=== PATIENT | male | born 1935 | race Caucasian/White ===

== ENCOUNTER → 2018-11-23 | Outpatient (CLI) | payer MEDICARE, OTHER ==
--- NOTE | 2018-11-23 14:20 | Diagnostic Imaging Report ---
INDICATION: Peripheral vascular disease. Upper extremity arterial Doppler bilaterally revealed no focal velocity acceleration or deceleration. This phasicity of the waveforms bilaterally biphasic throughout the left and a mixed biphasic and triphasic on the right. No hemodynamically significant stenosis or segmental occlusion. IMPRESSION: Unremarkable bilateral upper extremity arterial Doppler. Dictated by: Dictated on workstation # [id number]
== END ==
LOC: RAD 11:36
PROVIDERS: ATTEND Pediatrics
DX: I73.9 Peripheral vascular disease, unspecified (principal)
CPT/HCPCS: 93930

== ENCOUNTER 2020-09-16 19:46 | Emergency (ER) | payer MEDICARE, OTHER ==
[~2020-09-16] VITALS: Ht 180.3 cm; Wt 75.0 kg
[2020-09-16 19:51] VITALS: BP 139/70
--- NOTE | 2020-09-16 20:23 | ED General ---
General Chief Complaint: General Problems/Pain Stated Complaint: LOW O2 Source of Information: Patient History of Present Illness Date Seen by Provider: Sep 16, 2020 Time Seen by Provider: 19:49 Initial Comments 84-year-old male presents with concern about low oxygen saturation. He has an oxygen saturation probe and had randomly tried to check his O2 sat at home. he states that he was not feeling short of breath or coughing. He was not running a fever or having chills. He did notice that his fingers were a little blue and cold. He was inside and states that the house was set to a temperature of 74. He does note that he uses oxygen when he sleeps at night. 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 It was reading in the low 80s for him. When he couldn't get it to read any higher even with being on oxygen for over 30 minutes he decided to come to the emergency department. He was concerned that his oxygen saturation may be very low. Allergies and Home Medications Allergies Coded Allergies: No Known Allergies (Verified Allergy, Unknown, 09/16/20) Patient Home Medication List Home Medication List Reviewed: Yes Review of Systems Review of Systems Constitutional: No chills, No dizziness, No fever, No malaise, No weakness EENTM: no symptoms reported Respiratory: No cough, No dyspnea on exertion, No hemoptysis, No orthopnea, No phlegm, No short of breath, No stridor, No wheezing Cardiovascular: No chest pain, No edema, No palpitations Gastrointestinal: no symptoms reported Genitourinary: no symptoms reported Musculoskeletal: no symptoms reported Skin: change in color (his fingers her cold and have blue color to them but are not painful) Psychiatric/Neurological: No Symptoms Reported Hematologic/Lymphatic: No Symptoms Reported Past Hgdngxx-Ujwheg-Vnayza Hx Past Med/Social Hx: Reviewed Nursing Past Med/Soc Hx Patient Social History Recent Foreign Travel: No Contact w/Someone Who Travel: No Physical Exam Vital Signs Vital Signs - First Documented 09/16/20 19:51 Temp 36.0 Pulse 71 Resp 17 B/P (MAP) 139/70 (93) O2 Delivery Room Air Capillary Refill : Height, Weight, BMI Height: '" Weight: lbs. oz. 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 They do warm up when placed in a warm blanket or covered in clothing. He has strong peripheral pulses and once his fingers are warm he has good capillary refill.) Progress/Results/Core Measures Suspected Sepsis SIRS Temperature: Pulse: Respiratory Rate: Blood Pressure / Mean: Results/Orders Vital Signs/I&O 09/16/20 19:51 Temp 36.0 Pulse 71 Resp 17 B/P (MAP) 139/70 (93) O2 Delivery Room Air Capillary Refill : Progress Note : Progress Note reassured pt that once his fingers are warmed up he has normal Oxygen saturation and it picks up 100% O2 saturation the same as the probe placed on his earlobe. Advised to have him warm his hands at home if he wants to try checking his O2 sats at home. Encouraged to check back with his primary provider for continued concerns. Departure Impression Primary Impression: Cold finger without peripheral vascular disease Disposition: HOME, SELF-CARE Condition: Stable Departure-Patient Inst. Decision time for Depature: 20:21 Referrals: ANTHONY TURK MD (PCP/Family) Primary Care Physician Patient Instructions: General (DC) Add. Discharge Instructions: Make sure to warm up your hands and fingers prior to trying to use the device to check your oxygen saturation and pulse. Follow up with clinic and Dr. Turk for further concerns All discharge instructions reviewed with patient and/or family. Voiced understanding. NORA CORTES MD Sep 16, 2020 20:23
== END 2020-09-16 20:23 | disposition home or self-care (01) ==
LOC: EDUNIT# 19:46 → ER FS 19:48
DX: T69.01 Immersion hand (principal); X31.XXXA Exposure to excessive natural cold, initial encounter
CPT/HCPCS: 99281

== ENCOUNTER 2022-08-13 13:01 | Emergency (ER) | payer MEDICARE, OTHER ==
[~2022-08-13] VITALS: Ht 177 cm; Wt 90.0 kg
--- NOTE | 2022-08-13 13:05 | ED General ---
General Stated Complaint: AMS History of Present Illness Date Seen by Provider: Aug 13, 2022 Time Seen by Provider: 13:03 Initial Comments 86-year-old male brought in by EMS. EMS was called because the family was concerned about some confusion. EMS reports that son would like to have him checked out and family because they felt that he had an episode of confusion. When EMS arrived patient does not have any confusional episodes and reports that he is fine and has no complaints. Patient alert orientated. No reports of rec ent fevers chills or illness. Allergies and Home Medications Allergies Coded Allergies: No Known Allergies (Verified Allergy, Unknown, 09/16/20) Patient Home Medication List Home Medication List Reviewed: Yes Review of Systems Review of Systems Constitutional: see HPI EENTM: no symptoms reported Respiratory: no symptoms reported Cardiovascular: no symptoms reported Gastrointestinal: no symptoms reported Musculoskeletal: no symptoms reported Skin: no symptoms reported Psychiatric/Neurological: See HPI Past Xynodvd-Hfdqcu-Ieshyo Hx Seasonal Allergies Seasonal Allergies: Yes Past Medical History Surgeries: Yes Respiratory: Yes Cardiac: Yes Neurological: No Genitourinary: No Gastrointestinal: No Musculoskeletal: Yes Endocrine: No HEENT: Yes Cancer: No Psychosocial: No Integumentary: No Blood Disorders: No Physical Exam Vital Signs Vital Signs - First Documented 08/13/22 13:20 Temp 35.7 Pulse 72 Resp 16 B/P (MAP) 139/79 (99) Pulse Ox 98 O2 Delivery Room Air Capillary Refill : Height, Weight, BMI Height: '" Weight: lbs. oz. 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-XII Norm as Tested; No Facial Droop, No Motor Weakness Skin: Normal Color, Warm/Dry Progress/Results/Core Measures Suspected Sepsis SIRS Temperature: Pulse: Respiratory Rate: Laboratory Tests 08/13/22 13:11: White Blood Count 7.7 Blood Pressure / Mean: Laboratory Tests 08/13/22 13:11: Creatinine 1.30, Platelet Count 237, Total Bilirubin 0.5 Results/Orders Lab Results Laboratory Tests Test 08/13/22 13:11 Range/Units White Blood Count 7.7 4.3-11.0 10^3/uL Red Blood Count 4.46 4.30-5.52 10^6/uL Hemoglobin 14.4 13.3-17.7 g/dL Hematocrit 42 40-54 % Mean Corpuscular Volume 94 80-99 fL Mean Corpuscular Hemoglobin 32 25-34 pg Mean Corpuscular Hemoglobin Concent 34 32-36 g/dL Red Cell Distribution Width 12.5 10.0-14.5 % Platelet Count 237 130-400 10^3/uL Mean Platelet Volume 9.2 9.0-12.2 fL Immature Granulocyte % (Auto) 1 % Neutrophils (%) (Auto) 50 42-75 % Lymphocytes (%) (Auto) 31 12-44 % Monocytes (%) (Auto) 11 0-12 % Eosinophils (%) (Auto) 6 0-10 % Basophils (%) (Auto) 1 0-10 % Neutrophils # (Auto) 3.8 1.8-7.8 10^3/uL Lymphocytes # (Auto) 2.4 1.0-4.0 10^3/uL Monocytes # (Auto) 0.8 0.0-1.0 10^3/uL Eosinophils # (Auto) 0.5 H 0.0-0.3 10^3/uL Basophils # (Auto) 0.1 0.0-0.1 10^3/uL Immature Granulocyte # (Auto) 0.0 0.0-0.1 10^3/uL Sodium Level 139 135-145 MMOL/L Potassium Level 4.8 3.6-5.0 MMOL/L Chloride Level 104 98-107 MMOL/L Carbon Dioxide Level 25 21-32 MMOL/L Anion Gap 10 5-14 MMOL/L Blood Urea Nitrogen 32 H 7-18 MG/DL Creatinine 1.30 0.60-1.30 MG/DL Estimat Glomerular Filtration Rate 54 BUN/Creatinine Ratio 25 Glucose Level 95 70-105 MG/DL Calcium Level 9.1 8.5-10.1 MG/DL Corrected Calcium 9.0 8.5-10.1 MG/DL Magnesium Level 2.0 1.6-2.4 MG/DL Total Bilirubin 0.5 0.1-1.0 MG/DL Aspartate Amino Transf (AST/SGOT) 19 5-34 U/L Alanine Aminotransferase (ALT/SGPT) 11 0-55 U/L Alkaline Phosphatase 97 40-136 U/L Total Protein 6.8 6.4-8.2 GM/DL Albumin 4.1 3.2-4.5 GM/DL My Orders Orders - LOREE KHAN DO Cbc With Automated Diff (08/13/22 13:05) Comprehensive Metabolic Panel (08/13/22 13:05) Magnesium (08/13/22 13:05) Ua Culture If Indicated (08/13/22 13:05) Vital Signs/I&O 08/13/22 13:20 Temp 35.7 Pulse 72 Resp 16 B/P (MAP) 139/79 (99) Pulse Ox 98 O2 Delivery Room Air Capillary Refill : Progress Note : Progress Note Patient has had no episodes of confusion while he is here. Patient's labs do not show any acute findings. Patient reports that he does not want to provide a urine he just wants to go home and does not need to be sent in here in the emergency room. Per patient's request he will be discharged. Patient can follow-up with his primary care provider for further outpatient evaluation as he chooses. Departure Impression Primary Impression: Episode of confusion Disposition: 01 HOME, SELF-CARE Condition: Stable Departure-Patient Inst. Referrals: ANTHONY MOISE MD (PCP) Primary Care Physician Patient Instructions: Delirium (Confusion) (DC) Add. Discharge Instructions: Follow-up with your primary care provider as needed LOREE KHAN DO Aug 13, 2022 13:05
[2022-08-13 13:17] LABS: BASOPHILS # (AUTO) 0.1 10^3/uL (0.0-0.1); BASOPHILS % (AUTO) 1 % (0-10); EOSINOPHILS # (AUTO) 0.5 10^3/uL (0.0-0.3); EOSINOPHILS % (AUTO) 6 % (0-10); HEMATOCRIT 42 % (40-54); HEMOGLOBIN 14.4 g/dL (13.3-17.7); LYMPHOCYTES # (AUTO) 2.4 10^3/uL (1.0-4.0); LYMPHOCYTES % (AUTO) 31 % (12-44); MEAN CORPUSCULAR HEMOGLOBIN 32 pg (25-34); MEAN CORPUSCULAR HGB CONC 34 g/dL (32-36); MEAN CORPUSCULAR VOLUME 94 fL (80-99); MEAN PLATELET VOLUME 9.2 fL (9.0-12.2); MONOCYTES # (AUTO) 0.8 10^3/uL (0.0-1.0); MONOCYTES % (AUTO) 11 % (0-12); NEUTROPHILS # (AUTO) 3.8 10^3/uL (1.8-7.8); NEUTROPHILS % (AUTO) 50 % (42-75); PLATELET COUNT 237 10^3/uL (130-400); WHITE BLOOD COUNT 7.7 10^3/uL (4.3-11.0)
[2022-08-13 13:20] VITALS: BP 139/79
[2022-08-13 13:39] LABS: ALBUMIN 4.1 GM/DL (3.2-4.5); BILIRUBIN,TOTAL 0.5 MG/DL (0.1-1.0); CALCIUM 9.1 MG/DL (8.5-10.1); CREATININE SERUM 1.3 MG/DL (0.60-1.30); POTASSIUM 4.8 MMOL/L (3.6-5.0); TOTAL PROTEIN 6.8 GM/DL (6.4-8.2)
== END 2022-08-13 14:34 | disposition home or self-care (01) ==
LOC: EDUNIT# 13:01 → ER FS 13:02
DX: R41.0 Disorientation, unspecified (principal)
CPT/HCPCS: 36415; 80053; 83735; 85025; 99283

== ENCOUNTER 2023-09-09 13:43 | Emergency (ER) | payer MEDICARE, OTHER ==
[~2023-09-09] VITALS: Ht 180 cm; Wt 76.0 kg
[2023-09-09 13:51] VITALS: BP 210/97
--- NOTE | 2023-09-09 13:59 | ED General ---
General Chief Complaint: General Problems/Pain Stated Complaint: CHEST PAIN Nursing Triage Note: Patient has presented to ER with cc of abd deisy and nausea for the last week, he went to urgent care on Thursday was started on zofran and it did help for a short time. This morning he developed this pushing out feeling in his upper chest. He did take some peptobismol but it has not helped. He continues to have the abd and nausea as well. Source of Information: Patient Exam Limitations: No Limitations History of Present Illness Date Seen by Provider: Sep 09, 2023 Time Seen by Provider: 13:45 Initial Comments This is a an 87-year-old male with history of hypertension who presents to the ER complaining of ongoing abdominal pain for 1 week that has improved some. His abdominal pain started 1 week ago and was diffuse and moderate in severity. He went to urgent care 3 days ago and received a prescription for Zofran which helped initially but now is not providing any relief. His bowels have not moved for 2 days which is not uncommon for him. He has tried some Pepto-Bismol without relief as well. This morning he started having some chest pressure as well that is currently rated 8/10 without associated shortness of breath. No medications have been tried for this. He has no cardiac history and risk factors include hypertension. Of note the patient does wear a fentanyl patch for chronic leg pain. Allergies and Home Medications Allergies Coded Allergies: No Known Allergies (Verified Allergy, Unknown, 09/16/20) Patient Home Medication List Home Medication List Reviewed: Yes Review of Systems Review of Systems Constitutional: no symptoms reported, see HPI (All other systems negative except as documented in HPI.) Past Reefdki-Ahhyim-Danvga Hx Patient Social History Tobacco Use?: No Use of E-Cig and/or Vaping dev: No Substance use?: No Alcohol Use?: No Pt feels they are or have been: Unable to obtain Seasonal Allergies Seasonal Allergies: Yes Past Medical History Surgeries: Yes Respiratory: Yes Cardiac: Yes Neurological: No Genitourinary: No Gastrointestinal: No Musculoskeletal: Yes Endocrine: No HEENT: Yes Cancer: No Psychosocial: No Integumentary: No Blood Disorders: No Physical Exam Vital Signs Vital Signs - First Documented 09/09/23 13:51 Pulse 67 Resp 18 B/P (MAP) 210/97 (134) Pulse Ox 99 O2 Delivery Room Air Capillary Refill : Height, Weight, BMI Height: '" Weight: lbs. oz. kg; 23.00 BMI Method: General Appearance: No Apparent Distress, WD/WN Eyes: Bilateral Eye Normal Inspection, Bilateral Eye PERRL, Bilateral Eye EOMI HEENT: PERRL/EOMI, TMs Normal, Normal ENT Inspection, Pharynx Normal Neck: Full Range of Motion, Normal Inspection, Non Tender, Supple, Carotid Bruit Respiratory: Chest Non Tender, Lungs Clear, Normal Breath Sounds, No Accessory Muscle Use, No Respiratory Distress Cardiovascular: Regular Rate, Rhythm, No Edema, No Gallop, No JVD, No Murmur, Normal Peripheral Pulses Gastrointestinal: Normal Bowel Sounds, No Organomegaly, No Pulsatile Mass, Non Tender, Soft Back: Normal Inspection, No CVA Tenderness, No Vertebral Tenderness Extremity: Normal Capillary Refill, Normal Inspection, Normal Range of Motion, Non Tender, No Calf Tenderness, No Pedal Edema Neurologic/Psychiatric: Alert, Oriented x3, No Motor/Sensory Deficits, Normal Mood/Affect Skin: Normal Color, Warm/Dry Lymphatic: No Adenopathy Progress/Results/Core Measures Suspected Sepsis SIRS Temperature: Pulse: 67 Respiratory Rate: 18 Laboratory Tests 09/09/23 13:44: White Blood Count 8.3 Blood Pressure 210 /97 Mean: 134 Laboratory Tests 09/09/23 13:44: Creatinine 1.24, Platelet Count 256, Total Bilirubin 0.8 Results/Orders Lab Results Laboratory Tests Test 09/09/23 13:44 Range/Units White Blood Count 8.3 4.3-11.0 10^3/uL Red Blood Count 5.11 4.30-5.52 10^6/uL Hemoglobin 16.6 13.3-17.7 g/dL Hematocrit 50 40-54 % Mean Corpuscular Volume 97 80-99 fL Mean Corpuscular Hemoglobin 33 25-34 pg Mean Corpuscular Hemoglobin Concent 34 32-36 g/dL Red Cell Distribution Width 12.1 10.0-14.5 % Platelet Count 256 130-400 10^3/uL Mean Platelet Volume 9.0 9.0-12.2 fL Immature Granulocyte % (Auto) 1 % Neutrophils (%) (Auto) 68 42-75 % Lymphocytes (%) (Auto) 25 12-44 % Monocytes (%) (Auto) 5 0-12 % Eosinophils (%) (Auto) 1 0-10 % Basophils (%) (Auto) 1 0-10 % Neutrophils # (Auto) 5.6 1.8-7.8 10^3/uL Lymphocytes # (Auto) 2.1 1.0-4.0 10^3/uL Monocytes # (Auto) 0.5 0.0-1.0 10^3/uL Eosinophils # (Auto) 0.1 0.0-0.3 10^3/uL Basophils # (Auto) 0.1 0.0-0.1 10^3/uL Immature Granulocyte # (Auto) 0.0 0.0-0.1 10^3/uL Sodium Level 142 135-145 MMOL/L Potassium Level 5.1 H 3.6-5.0 MMOL/L Chloride Level 102 98-107 MMOL/L Carbon Dioxide Level 27 21-32 MMOL/L Anion Gap 13 5-14 MMOL/L Blood Urea Nitrogen 24 H 7-18 MG/DL Creatinine 1.24 0.60-1.30 MG/DL Estimat Glomerular Filtration Rate 57 BUN/Creatinine Ratio 19 Glucose Level 111 H 70-105 MG/DL Calcium Level 10.0 8.5-10.1 MG/DL Corrected Calcium 8.5-10.1 MG/DL Total Bilirubin 0.8 0.1-1.0 MG/DL Aspartate Amino Transf (AST/SGOT) 19 5-34 U/L Alanine Aminotransferase (ALT/SGPT) 11 0-55 U/L Alkaline Phosphatase 92 40-136 U/L Troponin I < 0.30 <0.30 NG/ML Total Protein 7.9 6.4-8.2 GM/DL Albumin 4.7 H 3.2-4.5 GM/DL Lipase 21 8-78 U/L My Orders Orders - SYEDA SZYMANSKI T DO Aspirin Chewable Tablet (Aspirin Chewabl (09/09/23 14:00) Cbc And Automated Diff (09/09/23 13:51) Comprehensive Metabolic Panel (09/09/23 13:51) Lipase (09/09/23 13:51) Troponin I Fs (09/09/23 13:51) Ekg Tracing (09/09/23 13:51) Chest 1 View Ap/Pa Only (09/09/23 13:51) Ct Abdomen/Pelvis W (09/09/23 13:51) Nitroglycerin 0.4 Mg Btl 25's (Nitroglyc (09/09/23 14:00) Iohexol Injection (Omnipaque 350 Mg/Ml 1 (09/09/23 14:30) Received Contrast (Hold Metformin- Contr (09/09/23 14:30) Ns (Ivpb) 100 Ml (Sodium Chloride 0.9% 1 (09/09/23 14:30) Ns Iv 1000 Ml (Ns Iv 1000 Ml) (09/09/23 15:00) Medications Given in ED Current Medications Medications Dose Ordered Sig/Jesus Route Start Time Stop Time Status Last Admin Dose Admin Aspirin 324 mg ONCE ONCE PO 09/09/23 14:00 09/09/23 14:01 DC 09/09/23 14:00 324 MG Iohexol 100 ml ONCE ONCE IV 09/09/23 14:30 09/09/23 14:31 DC 09/09/23 14:36 80 ML Nitroglycerin 0.4 mg ONCE PRN SL 09/09/23 14:00 09/09/23 14:00 0.4 MG Sodium Chloride 100 ml ONCE ONCE IV 09/09/23 14:30 09/09/23 14:31 DC 09/09/23 14:36 100 ML Vital Signs/I&O 09/09/23 13:51 Pulse 67 Resp 18 B/P (MAP) 210/97 (134) Pulse Ox 99 O2 Delivery Room Air Capillary Refill : Blood Pressure Mean: 134 Progress Note : Time: 13:58 Progress Note This patient is seen for abdominal and chest pain. Initiate workup with labs, CT of the abdomen pelvis, chest x-ray. Patient will receive 324 mg of aspirin and 0.4 mg of sublingual nitro. His chest pain is currently 8/10. EKG shows right bundle branch block without other abnormalities. Patient's blood pressure is also elevated and the sublingual nitro should help this. 1507: Patient's symptoms improved with sublingual nitro x 1. His workup is unremarkable otherwise including labs, CT scan and chest x-ray. Upon reevaluation the patient informs me that he has not slept for the past 3 days because his has dementia and is very high demand at home. He continues to feel better in the ER. He has been given 1 L normal saline bolus to help flush kidneys after IV contrast was given. Patient does have some gas and bowel t hroughout his abdomen and I suspect with him not being irregular having bowel movements and with increased stress this likely caused some abdominal distention that radiated up to his chest. Will recommend that he start MiraLAX once daily to help keep him more regular and decrease any bloating or symptoms of fullness. ECG Initial ECG Impression Date: Sep 09, 2023 Initial ECG Impression Time: 13:47 Comment EKG shows sinus rhythm with right bundle branch block, ventricular rate 67 and otherwise normal intervals. Departure Impression Primary Impression: Abdominal pain Additional Impression: Acute nonspecific chest pain with low risk of coronary artery disease Disposition: 01 HOME, SELF-CARE Condition: Stable Departure-Patient Inst. Decision time for Depature: 15:08 Referrals: ANTHONY MOISE MD (PCP/Family) Primary Care Physician Patient Instructions: Abdominal Pain, Adult ED Add. Discharge Instructions: You should take MiraLAX, 1 capful in 8 ounces of water once daily. All discharge instructions reviewed with patient and/or family. Voiced understanding. SYEDA SZYMANSKI DO Sep 09, 2023 13:59
[2023-09-09 14:00] LABS: BASOPHILS # (AUTO) 0.1 10^3/uL (0.0-0.1); BASOPHILS % (AUTO) 1 % (0-10); EOSINOPHILS # (AUTO) 0.1 10^3/uL (0.0-0.3); EOSINOPHILS % (AUTO) 1 % (0-10); HEMATOCRIT 50 % (40-54); HEMOGLOBIN 16.6 g/dL (13.3-17.7); LYMPHOCYTES # (AUTO) 2.1 10^3/uL (1.0-4.0); LYMPHOCYTES % (AUTO) 25 % (12-44); MEAN CORPUSCULAR HEMOGLOBIN 33 pg (25-34); MEAN CORPUSCULAR HGB CONC 34 g/dL (32-36); MEAN CORPUSCULAR VOLUME 97 fL (80-99); MONOCYTES # (AUTO) 0.5 10^3/uL (0.0-1.0); MONOCYTES % (AUTO) 5 % (0-12); NEUTROPHILS # (AUTO) 5.6 10^3/uL (1.8-7.8); NEUTROPHILS % (AUTO) 68 % (42-75); PLATELET COUNT 256 10^3/uL (130-400); WHITE BLOOD COUNT 8.3 10^3/uL (4.3-11.0)
[2023-09-09] MEDS ORDERED: NITROGLYCERIN 0.4 MG SL TABLETS BTL 25'S SL PRN (14:00)
[2023-09-09] MEDS ORDERED: ASPIRIN 81 MG CHEWABLE TABLET PO ONE (14:00)
[2023-09-09 14:12] LABS: CHLORIDE 102 MMOL/L (98-107); POTASSIUM 5.1 MMOL/L (3.6-5.0); SODIUM 142 MMOL/L (135-145)
[2023-09-09 14:22] LABS: CARBON DIOXIDE 27 MMOL/L (21-32)
[2023-09-09 14:23] LABS: ALANINE AMINOTRANSFERASE 11 U/L (0-55); ALBUMIN 4.7 GM/DL (3.2-4.5); ALKALINE PHOSPHATASE 92 U/L (40-136); BILIRUBIN,TOTAL 0.8 MG/DL (0.1-1.0); BUN/CREATININE RATIO 19; CREATININE SERUM 1.24 MG/DL (0.60-1.30); GFR ESTIMATED 57; GLUCOSE 111 MG/DL (70-105); LIPASE 21 U/L (8-78); TOTAL PROTEIN 7.9 GM/DL (6.4-8.2)
[2023-09-09] MEDS ORDERED: IOHEXOL 350 MG/ML 100 ML (OMNIPAQUE 350) VIAL IV ONE (14:30)
[2023-09-09] MEDS ORDERED: HOLD METFORMIN - RECEIVED CONTRAST 20 ML VIAL IV SCH (14:30)
[2023-09-09] MEDS ORDERED: NS 100 ML (IVPB) BAG IV ONE (14:30)
--- NOTE | 2023-09-09 14:53 | Diagnostic Imaging Report ---
PROCEDURE: CT abdomen and pelvis with contrast. TECHNIQUE: Multiple contiguous axial images were obtained through the abdomen and pelvis after administration of intravenous contrast. Auto Exposure Controls were utilized during the CT exam to meet ALARA standards for radiation dose reduction. All CT scans use one or more of the following dose optimizing techniques: automated exposure control, MA and/or KvP adjustment based on patient size and exam type or iterative reconstruction. INDICATION: Nausea with upper abdominal pain and chest pain. No prior studies are available for comparison. The lung bases are clear. Liver and spleen contain numerous granulomas. Gallbladder is unremarkable. No biliary duct dilatation. Pancreas, adrenal glands and kidneys are unremarkable apart from small cortical low-attenuation lesions within both kidneys, suggestive of cysts. No calculi are seen. There is no hydronephrosis. Aorta is calcified but nonaneurysmal. Bowel loops are nonobstructed. The appendix is visualized in the right lower quadrant and does appear to be slightly prominent measuring 8 mm. There is also some questionable minimal adjacent inflammation. Early appendicitis cannot be entirely excluded. No free fluid or fluid collection is seen. There is diverticulosis of the sigmoid but no evidence of acute diverticulitis. Fat-containing left inguinal hernia is noted. The bladder is unremarkable. Prostate appears to be surgically absent. IMPRESSION: 1. There is some mild prominence to the appendix in the right lower quadrant and early appendicitis cannot be entirely excluded. 2. Uncomplicated diverticulosis. 3. Fat-containing left inguinal hernia. Dictated by: Dictated on workstation # [id number]
--- NOTE | 2023-09-09 14:55 | Diagnostic Imaging Report ---
INDICATION: Chest pain COMPARISON: None FINDINGS: Single frontal view of the chest demonstrates normal heart size and pulmonary vascularity. The lungs are well aerated and clear. No large pleural effusion or pneumothorax is seen. The visualized osseous structures show no acute abnormalities. IMPRESSION: 1. No acute cardiopulmonary process. Dictated by: Dictated on workstation # [id number]
[2023-09-09] MEDS ORDERED: NS IV 1000 ML 1,000 ML IV SCH (15:00)
== END 2023-09-09 15:30 | disposition home or self-care (01) ==
LOC: ER FS 13:43 → EDUNIT# 13:43 → ER FS 15:30
DX: R10.84 Generalized abdominal pain (principal); R07.89 Other chest pain
CPT/HCPCS: 36415; 71045; 74177; 80053; 83690; 84484; 85025; 93005; Q9967